=== PATIENT | female | born 1945 | race Caucasian/White ===

== ENCOUNTER → 2016-12-23 | Outpatient (CLI) | payer MEDICARE ==
[~2016-12-23] MED LIST: ALPR0.255 PO; ASCO-324 PO; BIOT10TA PO; CEPH250C2 PO; CHOL100018 PO; CRAN500T2 PO; ESOM20CA PO; FEXO60TA99 PO; FOSI20TA PO; HYDR25TA PO; IBUP-1724 PO; MELA3TAB30 PO; MULT1CAP47 PO; TRAM-277 PO; [UNRECOGNIZED DRUG - CODE] PO
== END ==
LOC: LAB 13:38
PROVIDERS: ATTEND Urology
DX: N39.0 Urinary tract infection, site not specified (principal)
CPT/HCPCS: 87077; 87086; 87186